=== PATIENT | female | born 1960 | race Caucasian/White ===

== ENCOUNTER 2017-04-01 08:30 | Emergency (ER) | payer OTHER ==
[2017-04-01] MEDS ORDERED: IBUPROFEN 400 MG TABLET (FP) PO ONE (08:36)
--- NOTE | 2017-04-01 08:36 | PDOC ---
History of Present Illness - General Chief Complaint: Injury Stated Complaint: RIGHT HAND INJURY S/P FALL Time Seen by Provider: 04/01/17 08:36 - History of Present Illness Initial Comments: 04/01/17 09:42 57 years old past medical history significant for rheumatoid arthritis presents to the emergency department with a mechanical slip and fall landed on her right hand. No other injuries sustained. It was icy outside. She had no prodrome of headache dizziness lightheadedness chest pain. She was able to ambulate after the fall. Pain in her right hand is moderate it is worse with movement it is throbbing there is no obvious deformity she has chronic lymphedema in her right upper extremity there is no additional swelling noted per patient Past History - Past Medical History Allergies/Adverse Reactions: Allergies Allergy/AdvReac Type Severity Reaction Status Date / Time adalimumab [From Humira] Allergy Rash Verified 04/01/17 08:32 Penicillins Allergy Difficulty Verified 04/01/17 08:32 Breathing Home Medications: Ambulatory Orders Folic Acid 1 mg PO DAILY 10/05/13 Methotrexate [Mexate -] 15 mg PO Q7D 10/05/13 Prednisone [Deltasone -] 5 mg PO ASDIR 10/05/13 Alprazolam [Xanax -] 0.25 mg PO BID PRN 10/06/13 Triamterene/Hydrochlorothiazid [Triamterene-Hctz 37.5-25 mg Tb] 1 each PO DAILY 10/06/13 Ca/D3/Mag/Zinc/Charley/Fabián/Mgbor [Caltrate 600+D3+Min Chew Tab] 1 each PO DAILY Cholecalciferol (Vitamin D3) [Vitamin D3] 1,000 unit PO DAILY 04/01/17 Meloxicam 15 mg PO DAILY 04/01/17 Methotrexate [Xatmep] 3 tab PO ASDIR 04/01/17 Omeprazole Magnesium [Prilosec Otc] 20 mg PO DAILY 04/01/17 Tofacitinib Citrate [Xeljanz] 5 mg PO BID 04/01/17 Anemia: No Asthma: No Cancer: No Cardiac Disorders: No CVA: No COPD: No CHF: No Dementia: No Diabetes: No GI Disorders: No Disorders: No HTN: No Hypercholesterolemia: No Liver Disease: No Seizures: No Thyroid Disease: No - Surgical History Abdominal Surgery: No Appendectomy: No Cardiac Surgery: No Cholecystectomy: Yes Lung Surgery: No Neurologic Surgery: No Orthopedic Surgery: Yes (Right Bunionectomy) - Suicide/Smoking/Psychosocial Hx Smoking History: Former smoker Have you smoked in the past 12 months: No If you are a former smoker, when did you quit?: 2011 Hx Alcohol Use: No Drug/Substance Use Hx: No Substance Use Type: None Hx Substance Use Treatment: No Review of Systems - Review of Systems Comments:: 04/01/17 09:42 ROS: A complete review of 10 out of 10 review of systems is taken and is negative apart from what is previously mentioned below and in the HPI. *Physical Exam - Physical Exam Comments: 04/01/17 09:42 Vitals: Triage Vital signs reviewed General Appearance: no acute distress, well nourished well developed, Head: Atraumatic, Neck: Supple;No Nucal rigidity Chest Wall: Nontender Cardiac: Regular rate and rhythym, no murmurs, no rubs, no gallops, Lungs: Clear to auscultation bilateral, good air movement bilaterally, Abdomen: Soft, non distended, normal bowel sounds, non tender to palpation Extremities: Full range of motion to all extremities, tenderness to palpation over the dorsum of the right hand maximally proximal to the third phalanx. Neurovascularly intact distally Skin: Warm and dry, no rashes or lesions, no rash, no petechiae Neuro: AOX3; Cranial Nerves 2-12 grossly intact, Strength intact to all extremities, Sensation intact to all extremities,gait normal Psych: normal mood, normal affect Procedures - Splinting Splint Location: Right: Hand (large ulnar gutter) Medical Decision Making - Medical Decision Making 04/01/17 09:43 Isolated hand injury no other injury sustained. Patient ablating comfortably. Tenderness palpation over the mid dorsum of the right hand. We'll x-ray and reassess offer patient pain medication surety took meloxicam this morning 04/01/17 10:20 Third and fifth metacarpal spiral fracture is nondisplaced. Splint placed by JOHANN Montemayor I have arranged for a follow-up appointment at [address] this afternoon with hand surgeon Dr. Cruz. Findings, the need for follow-up, strict return instructions discussed with patient. *DC/Admit/Observation/Transfer Diagnosis at time of Disposition: Hand fracture, right Qualifiers: Encounter type: initial encounter Fracture type: closed Qualified Code(s): S62.91XA - Unspecified fracture of right wrist and hand, initial encounter for closed fracture - Discharge Dispostion Disposition: HOME Condition at time of disposition: Stable Admit: No - Referrals - Patient Instructions Printed Discharge Instructions: How to Use a Sling Additional Instructions: At 1:[address] to Dr[address] Cruz's office here at [place]. Follow-up instructions and follow-up provided by Dr. Cruz. Return to the emergency department for any severe uncontrollable pain severe worsening symptoms or for any concerns. Keep elevated, Ice 20 min on 20 min off. Home pain meds as prescribed. - Post Discharge Activity
[2017-04-01 08:45] VITALS: BP 143/71; PULSE 56; TEMP 97.7; BMI 38.0
== END 2017-04-01 10:45 | disposition home or self-care (01) ==
LOC: FER 08:30
PROC: 2W3CX1Z Immobilization of Right Lower Arm using Splint (ICD-10-PCS; principal; 2017-04-01)
DX: S62.011A Displaced fracture of distal pole of navicular [scaphoid] bone of right wrist, initial encounter for closed fracture (principal); W01.0XXA Fall on same level from slipping, tripping and stumbling without subsequent striking against object, initial encounter; Y93.89 Activity, other specified; Y92.9 Unspecified place or not applicable; M06.9 Rheumatoid arthritis, unspecified; Z87.891 Personal history of nicotine dependence
CPT/HCPCS: 73110-TC-RT; 73130-TC-RT; 99283-25